=== PATIENT | female | born 1980 | race Caucasian/White ===

== ENCOUNTER 2021-10-05 10:55 | Emergency (ER) | payer BC, SELFPAY ==
--- NOTE | 2021-10-05 11:04 | ED.URI ---
HPI - URI/Sore Throat General Chief Complaint: Upper Respiratory Infection Stated Complaint: upper respiratory cough Time Seen by Provider: 10/05/21 11:04 Source: patient and RN notes reviewed History of Present Illness HPI Narrative: Patient is a 40-year-old female who presents the urgent care with complaints of sore throat, cough, body aches and congestion. Patient states that she had Covid in May and is Covid vaccinated with a booster. Patient states that she was exposed to Covid by her mother, [id number], and nieces and nephews. Patient denies of any fever, nausea, vomiting. Patient states that she has been taking ibuprofen. States her symptoms started Monday morning. No other acute complaints. No acute distress noted. Patient read the plan of care. Some parts of this dictation were generated by voice recognition software and may contain typographical and/or grammatical inaccuracies. Related Data Home Medications Medication Instructions Recorded Confirmed No Home Medications 10/05/21 10/05/21 Allergies Allergy/AdvReac Type Severity Reaction Status Date / Time No Known Allergies Allergy Verified 10/05/21 11:24 Review of Systems Review of Systems: CONSTITUTIONAL: Denies fever, chills, or sweats. EYES: Denies visual changes, redness, or discharge. ENT: Reports of sinus congestion, postnasal drainage, rhinorrhea, sore throat CARDIOVASCULAR: Denies chest pain, palpitations, or edema. RESPIRATORY: Reports of cough without dyspnea GASTROINTESTINAL: Denies abdominal pain, nausea, vomiting, or diarrhea. GENITOURINARY: Denies dysuria or hematuria. SKIN: Denies rash or itching. MUSCULOSKELETAL: Denies back pain, joint pain. Reports body aches NEUROLOGIC: Denies headache, numbness, or weakness. All other systems reviewed are negative, except as documented in HPI. PMFSH Comments At the time of my signature, I reviewed and agree with the nursing past medical, surgical, social, and family history. There is no relevant family history pertinent to the patient complaint. Exam Narrative: GENERAL: This is a well-nourished, well-developed patient, in no apparent distress. Appears slightly fatigued HEAD: normocephalic, atraumatic. EYES: PERRL. Sclera clear/white. Vision is grossly intact. EARS: External ears normal, auditory canals clear and without drainage, TMs normal without perforation. Hearing grossly intact. NOSE: External nose normal with no obvious nasal discharge. Mild bilateral erythemic nares with clear to yellow rhinorrhea THROAT: Mucous membranes moist, posterior pharynx clear. Moderate postnasal drainage NECK: Neck supple CARDIOVASCULAR: Regular rate and rhythm without murmurs, gallops, or rubs. RESPIRATORY: Clear to auscultation. Breath sounds equal bilaterally. No wheezes, rales, or rhonchi. SKIN: warm, intact with no suspicious lesions or rash, good texture and turgor. NEURO: awake, alert, and oriented to person, place and time. There were no obvious focal neurologic abnormalities. EXTREMITIES: No clubbing, cyanosis, or edema. Course Course Level of Care: Express Care Visit Vital Signs Vital signs: Vital Signs Temperature 98.7 F 10/05/21 11:10 Pulse Rate 87 10/05/21 11:10 Respiratory Rate 16 10/05/21 11:10 Blood Pressure 131/91 H 10/05/21 11:10 Pulse Oximetry 100 10/05/21 11:10 Temperature 98.7 F 10/05/21 11:10 Pulse Rate 87 10/05/21 11:10 Respiratory Rate 16 10/05/21 11:10 Blood Pressure 131/91 H 10/05/21 11:10 Pulse Oximetry 100 10/05/21 11:10 Reviewed-patient is informed that they may have pre-hypertension or hypertension based on a blood pressure reading in the department. I recommend the patient call the primary care provider listed on their discharge instructions or a physician of their choice this week to arrange follow-up for further evaluation of possible pre-hypertension or hypertension. MDM - URI/Sore Throat MDM Narrative Medical decision naif
[2021-10-05 11:10] VITALS: BP 131/91; PULSE 87; RESP 16; TEMP 37.1; O2SAT 100
[2021-10-06 14:39] LABS: SARS-CoV-2 RNA PCR Positive
== END 2021-10-05 11:44 | disposition home or self-care (01) ==
PROVIDERS: Emergency Provider Nurse Practitioner Family; PCP Internal Medicine
DX: U07.1 COVID-19 (principal)
CPT/HCPCS: 87081; 87804; 87880; 99213; C9803; G0463; U0003; U0005